=== PATIENT | female | born 1945 | race Caucasian/White ===

== ENCOUNTER → 2019-07-19 | Outpatient (CLI) | payer MEDICARE, BC ==
--- NOTE | 2019-07-19 14:15 | BD ---
EXAMINATION TYPE: Axial Bone Density DATE OF EXAM: 07/19/2019 COMPARISON: NONE CLINICAL HISTORY: M [age] Height: 5 FT 1 IN Weight: 190 FRAX RISK QUESTIONS: Alcohol (3 or more units per day): NO Family History (Parent hip fracture): NO Glucocorticoids (More than 3mos): NO (Ex: prednisone, prednisolone, methylprednisolone, dexamethasone, and hydrocortisone). History of Fracture in Adulthood: NO Secondary Osteoporosis: 1. Type 1 Diabetes: NO 2. Hyperthyroidism: NO 3. Menopause before 45: YES 4. Malnutrition: NO 5. Chronic liver disease: NO Rheumatoid Arthritis: NO Current Tobacco Use: NO RISK FACTORS HISTORY OF: Postmenopausal woman: AGE 38 Lost more than 2 inches in height since high school: YES MEDICATIONS: Additional Medications: METFORMIN, CHOLESTEROL MEDS, BLOOD PRESSURE MEDS, BABY ASPIRIN Additional History: EXAM MEASUREMENTS: Bone mineral densitometry was performed using the [employer] System. Bone mineral density as measured about the Lumbar spine is: ----- L1-L4(G/cm2): 1.362 T Score Values are as follows: ----- L2: 0.8 ----- L3: 2.4 ----- L4: 2.3 ----- L1-L4: 1.5 Bone mineral density has: INCREASED 3.2 % since study of: 2008 Bone mineral density about the R hip (g/cm2): 0.910 Bone mineral density about the L hip (g/cm2): 0.945 T Score values are as follows: -----R Neck: -0.9 -----L Neck: -0.7 -----R Total: -0.1 -----L Total: 0.5 Bone mineral density has: INCREASED 0.2 % since study of: 2008 IMPRESSION: Normal (Values between +1 and -1 indicate normal bone mass). Consider repeating this study in 5 year s or sooner if there is some new clinical indication. NOTE: T-SCORE=SD OF THE YOUNG ADULT MEAN.
--- NOTE | 2019-07-22 13:49 | MM ---
Reason for exam: screening (asymptomatic). Last mammogram was performed 4 years and 7 months ago. History: Patient is postmenopausal. Family history of breast cancer in paternal aunt. Physical Findings: A clinical breast exam by your physician is recommended on an annual basis and results should be correlated with mammographic findings. MG 3D Screening Mammo W/Cad Bilateral CC and MLO view(s) were taken. XCCL view(s) were taken of the right breast. Prior study comparison: December 30, 2014, bilateral MG screening mammo w CAD. March 22, 2012, bilateral digital screening mammo w/CAD. There are scattered fibroglandular densities. New nodule far posterior right breast 14.2cm from nipple. ASSESSMENT: Incomplete: need additional imaging evaluation, BI-RAD 0 RECOMMENDATION: Special view mammogram and ultrasound of the right breast. [facility] will attempt to contact patient to return for supplemental views and ultrasound.
== END | disposition home or self-care (01) ==
LOC: RADMAMWWP 12:50
PROVIDERS: ATTEND Family Medicine
DX: Z12.31 Encounter for screening mammogram for malignant neoplasm of breast (principal); M89.9 Disorder of bone, unspecified
CPT/HCPCS: 77063; 77067; 77080

== ENCOUNTER → 2019-08-01 | Outpatient (CLI) | payer MEDICARE, BC ==
--- NOTE | 2019-08-01 11:53 | MM ---
Reason for exam: additional evaluation requested from abnormal screening. Last mammogram was performed less than 1 month ago. History: Patient is postmenopausal. Family history of breast cancer in paternal aunt. Physical Findings: Nurse did not find any significant physical abnormalities on exam. MG 3D Work Up W/Cad RT Spot compression CC, spot compression MLO, and LM view(s) were taken of the right breast. Prior study comparison: July 19, 2019, bilateral MG 3d screening mammo w/cad. December 30, 2014, bilateral MG screening mammo w CAD. There are scattered fibroglandular densities. There is a 9 x 11mm posterior depth lower outer quadrant mass 13cm from nipple with spiculated boarders. These results were verbally communicated with the patient and result sheet given to the patient on 08/01/19. ASSESSMENT: Incomplete: need additional imaging evaluation, BI-RAD 0 RECOMMENDATION: Ultrasound of the right breast. (lower outer quadrant)
--- NOTE | 2019-08-01 11:55 | USB ---
Reason for exam: additional evaluation requested from abnormal screening. History: Patient is postmenopausal. Family history of breast cancer in paternal aunt. US Breast Workup Limited RT Technologist: Melva Murphy Right limited breast ultrasound including focal area of concern, retroareolar and axilla demonstrates a 1.1 x 0.9 x 0.9cm spiculated, solid, lobular margins, vascular lesion at 8 o'clock. These results were verbally communicated with the patient and result sheet given to the patient on 08/01/19. ASSESSMENT: Highly suggestive of malignancy, BI-RAD 5 RECOMMENDATION: Ultrasound core biopsy of the right breast. Called Dr. Khan's office with mammographic findings and has scheduled an appointment for the patient for 08/21/19 at 3:[address] Vasquez. Biopsy scheduled for 08/12/19 at 2:20. PRELIMINARY REPORT CALLED AND FAXED TO DR. VASQUEZ ON 08/01/19.
== END | disposition home or self-care (01) ==
LOC: RADMAMWWP 08:50
PROVIDERS: ATTEND Family Medicine
DX: R92.8 Other abnormal and inconclusive findings on diagnostic imaging of breast (principal)
CPT/HCPCS: 77065; 76642; G0279; 77061

== ENCOUNTER → 2019-08-12 | Day surgery (SDC) | payer MEDICARE, BC ==
[2019-08-12 13:25] VITALS: RESP 16
[2019-08-12 14:36] VITALS: BP 156/74; PULSE 66; TEMP 97.8
--- NOTE | 2019-08-12 16:09 | USB ---
EXAMINATION TYPE: US biopsy breast VAD RT, MG diagnostic mammo RT wo CAD DATE OF EXAM: 08/12/2019 CLINICAL HISTORY: R92.8 Abnormal Mammogram. TECHNIQUE: Ultrasound guided core biopsy of right breast. COMPARISON: 08/01/2019 FINDINGS: The procedure of ultrasound guided core biopsy was explained to the patient. Benefits, alternatives, and risks were discussed. An informed consent was then obtained. Preprocedural timeout was performed. The patient was placed in supine positioning for imaging and for the procedure. The overlying skin was prepped and draped in usual sterile fashion. 10 cc of 1% lidocaine was used as anesthetic into the skin and subcutaneous tissue up to a 1.1 cm highly suspicious mass at the 8:00 position in the right breast Under ultrasound guidance, a 12-gauge vacuum assisted biopsy gun device was used to obtain 6 core samples. Following this, a ribbon-shaped biopsy marker was left in the mass. Postprocedure mammogram demonstrates appropriate biopsy marker placement. The patient tolerated the procedure well without any immediate complication. The patient was kept in the radiology department for short stay after the procedure and then discharged home in stable condition. IMPRESSION: Successful, uncomplicated ultrasound guided core biopsy of a highly suspicious 1.1 cm right breast mass at the 8:00 position, full pathology results to follow. Pathology Results: Malignant RIGHT BREAST, 8:00, ULTRASOUND GUIDED CORE BIOPSY: Invasive moderately differentiated ductal carcinoma (Grade 2). See Surgical Pathology Cancer Case Summary and Comment. Recommendation Surgical consult of the right breast. VERONICA
== END ==
LOC: RADUSWWP 12:56
PROVIDERS: ATTEND Surgery
DX: C50.511 Malignant neoplasm of lower-outer quadrant of right female breast (principal); Z17.0 Estrogen receptor positive status [ER+]; R92.8 Other abnormal and inconclusive findings on diagnostic imaging of breast
CPT/HCPCS: 19083; 88305; 88342; 88341; 77065; A4648; J2001

== ENCOUNTER 2019-09-05 10:51 | Day surgery (SDC) | payer MEDICARE, BC ==
[2019-09-03 09:56] VITALS: BMI 35.3
[~2019-09-05 10:51] MED LIST: DEXAMETHASONE SOD PHOSPHATE 10 MG/ML 1 ML VIAL IV ONE; HEPARIN SODIUM,PORCINE 5,000 UNIT/ML 1 ML VIAL SQ ONE; LACTATED RINGERS 1,000 ML IV SCH; LIDOCAINE 1% (10MG/ML) FOR IV START INTRADERMA PRN; MORPHINE SULFATE 2 MG/ML SYRINGE IV PRN; ONDANSETRON 4 MG/2 ML VIAL IVP ONE; ONDANSETRON 4 MG/2 ML VIAL IVP PRN; Pre Op ABX Message 1 EACH MISC MISCELLANE ONE
[2019-09-05 11:30] LABS: Glucose,Whole Blood 131 mg/dL (75-99)
[2019-09-05] MEDS ORDERED: LIDOCAINE 1% INJ 10MG/ML (20 ML MDV) SQ ONE (12:08)
--- NOTE | 2019-09-05 12:46 | NM ---
EXAMINATION TYPE: NM sentinel node injection DATE OF EXAM: 09/05/2019 COMPARISON: NONE HISTORY: Right-sided breast cancer. TECHNIQUE AND FINDINGS: The procedure of sentinel lymph node injection was explained to the patient. The benefits, alternatives, and risks were discussed. An informed consent was then obtained. Overlying skin is cleaned with sterile alcohol. Following this, 526 uCi Tc99m Tilmanocept was inject ed in the upper outer aspect of the right nipple intradermally. The patient tolerated the procedure well without any immediate complication. The patient was kept in the radiology department for short stay after the procedure and then taken to surgery for surgical p rocedure what is presumed intraoperative gamma probe will be used for sentinel lymph node detection. IMPRESSION: Right breast radiotracer injection for sentinel node localization as above.
[2019-09-05] MEDS ORDERED: LIDOCAINE 1% INJ 10MG/ML (20 ML MDV) ONE (13:15)
[2019-09-05] MEDS ORDERED: HYDROmorphone (PF) 1 MG/ML ONE (13:15)
[2019-09-05] MEDS ORDERED: ETOMIDATE 2 MG/ML 10 ML VIAL ONE (13:15)
[2019-09-05] MEDS ORDERED: fentaNYL (PF) 50 MCG/ML 2 ML AMP ONE (13:15)
[2019-09-05] MEDS ORDERED: ePHEDrine SULFATE/0.9% NACL/PF 50 MG/5 ML SYRINGE IV ONE (13:15)
[2019-09-05] MEDS ORDERED: MIDAZOLAM 2 MG/2 ML VIAL ONE (13:15)
[2019-09-05] MEDS ORDERED: SUCCINYLCHOLINE CHLORIDE 100 MG/5 ML SYR IV ONE (13:15)
[2019-09-05] MEDS ORDERED: PROPOFOL 10 MG/ML 20 ML VIAL IV ONE (13:15)
[2019-09-05] MEDS ORDERED: SODIUM CHLORIDE 0.9% 100 ML with ceFAZolin 2,000 MG IV ONE ×2 (13:26)
[2019-09-05] MEDS ORDERED: METHYLENE BLUE 50 MG/10 ML AMPUL INJ ONE (13:55)
[2019-09-05] MEDS ORDERED: BUPIVACAIN-EPI 0.25%-1:200,000 30 ML VIAL SQ ONE ×2 (13:55→14:49)
[2019-09-05] MEDS ORDERED: LACTATED RINGERS 1,000 ML IV ONE (14:43)
[2019-09-05] MEDS ORDERED: HYDROcodone/APAP 5-325MG 1 EACH TAB PO PRN (15:20)
[2019-09-05] MEDS ORDERED: NALOXONE 0.4 MG/ML 1 ML VIAL IV PRN (15:20)
--- NOTE | 2019-09-05 15:25 | P.OP ---
Date of Procedure: 09/05/19 Procedure(s) Performed: REOPERATIVE DIAGNOSIS: Right breast cancer POSTOPERATIVE DIAGNOSIS: Same PROCEDURE: Right Breast wire localization lumpectomy with sentinel lymph node biopsy SURGEON: Darin EBL: Minimal ANESTHESIA: General COMPLICATIONS: None OPERATIVE PROCEDURE: Patient was placed on the operating room table in the supine position. 2 mL of methylene blue was injected into the subareolar space. The breast was then massaged for 5 minutes. The breast was prepped and draped in usual sterile fashion. The right axilla was addressed at that time. The hot spot in the right axilla was identified. A small curvilinear incision was made using the scalpel. Dissection down through the subcutaneous tissues took place using electrocautery. Using the neoprobe I identified a total of 2 sentinel lymph nodes. Neither of these were blue in color. No residual radioactivity was identified in the axilla following removal of those 2 nodes. These both appeared clinically benign and were sent to pathology in formalin. No bleeding was seen. The subcutaneous tissues were closed using 3-0 Vicryl sutures. The skin was closed using 4-0 Monocryl sutures. The wire entrance site was then addressed. This was present at the 7:00 location. A curvilinear incision was made adjacent to the wire entrance site. I followed the wire down into the breast tissue. An adequate lumpectomy specimen then took place around the wire. Margins of 1.5-2 cm worth attempted to be achieved. Palpation of the specimen suggested that the anterior and inferior margins were somewhat close. I took an additional margin anteriorly and inferiorly and these margins were painted the appropriate color on the new margin side. The initial specimen was also painted the appropriate 6 colors. Clips were used to identify the lumpectomy cavity. The clip was confirmed to be within the lumpectomy specimen by radiology. The subcutaneous tissues were closed using 3-0 Vicryl sutures. The skin was closed using a running 4-0 Monocryl stitch. Skin glue and sterile dressings were then applied. DISPOSITION: Stable to recovery room
[2019-09-05 15:42] VITALS: TEMP 97.3
[2019-09-05 16:33] LABS: Glucose,Whole Blood 170 mg/dL (75-99)
[2019-09-05 17:03] VITALS: BP 134/62; PULSE 67; RESP 20
--- NOTE | 2019-09-05 17:24 | USB ---
EXAM: Needle localization with wire placement. CLINICAL HISTORY: Biopsy-proven cancer in right breast TECHNIQUE: Needle localization with wire placement and surgical excision of area of concern in the right breast. Specimen mammogram. COMPARISON: Ultrasound and mammogram August 12, 2019. FINDINGS: The procedure of needle localization with wire placement and than surgical excision was explained to the patient. Benefits, alternatives, and risks were discussed. An informed consent was then obtained. Ultrasound guidance was chosen for localization as was performed during time of biopsy. Patient placed supine. Redemonstration of a heterogeneous lobulated hypoechoic lesion 8:00 position right breast was redemonstrated. Overlying skin cleansed with ChloraPrep. Lidocaine used as anesthetic into the skin and deeper tissue. Under ultrasound guidance a 5 cm needle was placed through the lesion. Needle is withdrawn and wires left. The patient tolerated the procedure well without any immediate complication. The patient was kept in the radiology department for short stay after the procedure and then taken to surgery for surgical excision. Targeted mass and wire are identified in specimen mammogram. The patient was kept in hospital for short stay after the procedure and then discharged home in stable condition. IMPRESSION: Successful, uncomplicated needle localization with wire placement and surgical excision of targeted mass or neoplasm in the right breast, full pathology results to follow. Pathology Results: Malignant A. RIGHT BREAST, LUMPECTOMY: 15 x 10 x 8 mm infiltrating well differentiated (Grade 1) not contacting margins of excision. See note. B. SENTINEL LYMPH NODES, BIOPSIES: Two lymph nodes negative for metastatic adenocarcinoma as documented by H+E as well as appropriately controlled immunohistochemical stains for cytokeratin 7 and VIC. C. EXTENDED/NEW ANTERIOR INFERIOR MARGIN, EXCISION: Adipose tissue negative for adenocarcinoma. Recommendation Appropriate oncologic management. MTDD
[2019-09-05] MEDS ORDERED: ONDANSETRON ODT 4 MG TAB PO ONE (17:45)
--- NOTE | 2019-09-16 15:09 | CDI ---
Outpatient Documentation Clarification Form Date: 09/16/19 CDS/Ward Attendant Name: Dee Duval Phone: If any questions, call Heidy Ramesh Chipping Machine Operator at [phone] Patient Name: Luciana Pang Admit Date: 09/05/19 Discharge Date: 09/05/19 ATTENTION: The [facility] Coding Staff appreciate your assistance in clarifying documentation. Please respond to the clarification below the line at the bottom and electronically sign. The [facility] Coding staff will review the response and follow-up if needed. Please note: Queries are made part of the Legal Health Record. If you have any questions, please contact the Chipping Machine Operator. Dear Dr. Webster, Please provide clarification as to the depth of the axillary lymph nodes biopsied. To assist in ascertaining which lymph node excision code to report, the axillary lymph nodes are divided into Levels I through III. Levels II and III would always be deep (code 14867). Level I may be deep (code 12655) or superficial (code 52456), depending on the patient's body habitus. Superficial nodes at most sites would be easily palpable. Since Level I axillary lymph nodes may be deep or superficial, it is important that the depth (ie, deep or superficial) be documented in the medical record to ensure correct coding Thank you for your kind consideration. Deep MTDD
== END 2019-09-05 17:53 | disposition home or self-care (01) ==
LOC: OR 10:51
PROVIDERS: ATTEND Surgery
DX: C50.911 Malignant neoplasm of unspecified site of right female breast (principal); E11.9 Type 2 diabetes mellitus without complications; K21.9 Gastro-esophageal reflux disease without esophagitis; M19.90 Unspecified osteoarthritis, unspecified site; Z79.84 Long term (current) use of oral hypoglycemic drugs; Z79.82 Long term (current) use of aspirin; Z79.899 Other long term (current) drug therapy; Z88.8 Allergy status to other drugs, medicaments and biological substances; Z88.0 Allergy status to penicillin; Z91.048 Other nonmedicinal substance allergy status
CPT/HCPCS: 19301; 38525; 88342; 88307; 88341; 76098; 38792; A9520; J2250; J1644; J1100; J2405; J0690; J2001; J3010; J1170; J0330; J2704; Q9968

== ENCOUNTER → 2021-01-28 | Outpatient (CLI) | payer MEDICARE, BC ==
--- NOTE | 2021-02-16 09:16 | MM ---
Reason for exam: additional evaluation requested from prior study. Last mammogram was performed 1 year and 6 months ago. History: Patient is postmenopausal and has history of breast cancer at age 73. Family history of breast cancer in paternal aunt. Malignant US breast localization RT of the right breast, September 05, 2019. Lumpectomy of the right breast, September 05, 2019. Malignant US biopsy breast VAD RT of the right breast, August 12, 2019. Physical Findings: Nurse did not find any significant physical abnormalities on exam. MG 3D Diag Mammo W/Cad VIRAJ Bilateral CC and MLO view(s) were taken. Prior study comparison: August 12, 2019, right breast MG diagnostic mammo RT wo CAD. August 01, 2019, right breast MG 3d work up w/cad RT. There are scattered fibroglandular densities. Post surgical change posterior right breast. Short interval follow up to assess for any evolving post therapy changes. Otherwise, no significant change. These results were verbally communicated with the patient and result sheet given to the patient on 01/28/21. ASSESSMENT: Probably benign, BI-RAD 3 RECOMMENDATION: Follow-up diagnostic mammogram of the right breast in 6 months.
== END | disposition home or self-care (01) ==
LOC: RADMAMWWP 14:09
PROVIDERS: ATTEND Internal Medicine Hematology & Oncology
DX: R92.8 Other abnormal and inconclusive findings on diagnostic imaging of breast (principal); Z85.3 Personal history of malignant neoplasm of breast
CPT/HCPCS: 77066; G0279; 77062

== ENCOUNTER → 2021-08-31 | Outpatient (CLI) | payer MEDICARE, BC ==
--- NOTE | 2021-08-31 14:34 | MM ---
Reason for exam: follow-up at short interval from prior study. Last mammogram was performed 7 months ago. History: Patient is postmenopausal and has history of breast cancer at age 73. Family history of breast cancer in paternal aunt. Malignant US breast localization RT of the right breast, September 05, 2019. Lumpectomy of the right breast, September 05, 2019. Malignant US biopsy breast VAD RT of the right breast, August 12, 2019. Physical Findings: A clinical breast exam by your physician is recommended on an annual basis and results should be correlated with mammographic findings. MG 3D Diag Mammo W/Cad RT CC and MLO view(s) were taken of the right breast. Prior study comparison: January 28, 2021, bilateral MG 3d diag mammo w/cad VIRAJ. August 12, 2019, right breast MG diagnostic mammo RT wo CAD. There are scattered fibroglandular densities. Post surgical and post therapy changes right breast. Ongoing short interval follow up to assess any evolving post therapy changes. No significant new findings when compared with previous films. These results were verbally communicated with the patient and result sheet given to the patient on 08/31/21. ASSESSMENT: Probably benign, BI-RAD 3 RECOMMENDATION: Follow-up diagnostic mammogram of both breasts in 5 months. Back on schedule.
--- NOTE | 2021-08-31 19:42 | BD ---
EXAMINATION TYPE: Axial Bone Density DATE OF EXAM: 08/31/2021 COMPARISON: NONE CLINICAL HISTORY: 75 years year old Female. ICD-10 CODE: [id number], [id number] Height: 5 FT 1 1/4 IN Weight: 167 FRAX RISK QUESTIONS: Alcohol (3 or more units per day): NO Family History (Parent hip fracture): NO Glucocorticoids (More than 3mos): NO (Ex: prednisone, prednisolone, methylprednisolone, dexamethasone, and hydrocortisone). History of Fracture in Adulthood: NO Secondary Osteoporosis: 1. Type 1 Diabetes: TYPE 2 2. Hyperthyroidism: NO 3. Menopause before 45: YES 4. Malnutrition: NO 5. Chronic liver disease: NO Rheumatoid Arthritis: NO Current Tobacco Use: NO RISK FACTORS HISTORY OF: Surgery to Spine/Hip(right/left)/Wrist (right/left): NO Family History of Osteoporosis: NO Active: YES Diet low in dairy products/other sources of calcium: NO Postmenopausal woman: YES Take estrogen and/or progesterone medications: NO Lost more than 2 inches in height since high school: YES Frequent falls: NO Poor Health: GOOD Hyperparathyroidism: NO Adrenal Insufficiency: NO MEDICATIONS: Additional Medications: ANASTROZOLE, METFORMIN, ATORVASTATIN, ATENOLOL, ASPIRIN, CALCIUM Additional History: BREAST CANCER 2019 EXAM MEASUREMENTS: Bone mineral densitometry was performed using the [employer]. Bone mineral density as measured about the Lumbar spine is: ----- L1-L4(G/cm2): 1.367 T Score Values are as follows: ----- L2: 1.2 ----- L3: 2.4 ----- L4: 1.9 ----- L1-L4: 1.6 Bone mineral density has: DECREASED -0.4 % since of: 2019 Bone mineral density about the R hip (g/cm2): 0.916 Bone mineral density about the L hip (g/cm2): 0.968 T Score values are as follows: -----R Neck: -0.9 -----L Neck: -0.5 -----R Total: -0.3 -----L Total: 0.0 Bone mineral density has: DECREASED -3.9 % since of: 2019 IMPRESSION: Normal (Values between +1 and -1 indicate normal bone mass). However, note that measurements border o n osteopenia at the right hip. Consider repeating this study in 5 years or sooner if there is some new clinical indication. NOTE: T-SCORE=SD OF THE YOUNG ADULT MEAN.
== END | disposition home or self-care (01) ==
LOC: RADMAMWWP 13:58
PROVIDERS: ATTEND Internal Medicine Hematology & Oncology
DX: Z03.89 Encounter for observation for other suspected diseases and conditions ruled out (principal); C50.511 Malignant neoplasm of lower-outer quadrant of right female breast; N95.1 Menopausal and female climacteric states; Z17.0 Estrogen receptor positive status [ER+]; Z79.890 Hormone replacement therapy; Z85.3 Personal history of malignant neoplasm of breast
CPT/HCPCS: 77080; 77065; G0279; 77061

== ENCOUNTER → 2022-03-07 | Outpatient (CLI) | payer MEDICARE, BC ==
--- NOTE | 2022-03-07 13:54 | MM ---
Reason for Exam: Follow-up at short interval from prior study. Last mammogram was performed 1 year(s) and 1 month(s) ago. Patient History: Menarche at age 10. First Full-Term at age 21. Postmenopausal. Breast cancer, right, age 73. 09/05/2019, Lumpectomy on the Right side. 09/05/2019, Malignant Core Biopsy on the right side. 08/12/2019, Malignant Core Biopsy on the right side. Paternal aunt had breast cancer. Tissue Density: There are scattered fibroglandular densities. Findings: Analyzed By CAD. Postsurgical and posttreatment change right breast. Asymmetric density anterior medial right cc view remains unchanged. Scattered benign os calcis calcifications on the left. No significant change from prior exams. Overall Assessment: Probably benign, BI-RAD 3 Management: Diagnostic Mammogram of the right breast in 6 months. Continued short interval follow-up after recent treatment to assess for any evolving posttreatment changes. Patient should continue monthly self breast exams. Electronically signed and approved by: Reno Cruz M.D. Radiologist
== END | disposition home or self-care (01) ==
LOC: RADMAMWWP 12:39
PROVIDERS: ATTEND Internal Medicine Hematology & Oncology
DX: Z85.3 Personal history of malignant neoplasm of breast (principal)
CPT/HCPCS: 77066; G0279; 77062

== ENCOUNTER → 2023-03-28 | Outpatient (CLI) | payer MEDICARE, BC ==
--- NOTE | 2023-03-28 11:06 | MM ---
Reason for Exam: Follow-up at short interval from prior study. Last mammogram was performed 1 year(s) and 1 month(s) ago. Patient History: Menarche at age 10. First Full-Term at age 21. Postmenopausal. Breast cancer, right, age 73. 09/05/2019, Lumpectomy on the Right side. 09/05/2019, Malignant Core Biopsy on the right side. 08/12/2019, Malignant Core Biopsy on the right side. Paternal aunt had breast cancer. Prior Study Comparison: 06/24/2002 Screening Mammogram, [facility]. 07/09/2003 Screening Mammogram, [facility]. 03/24/2008 Bilateral Screening Mammogram, [facility]. 03/22/2012 Bilateral Screening Mammogram, [facility]. 12/30/2014 Bilateral Screening Mammogram, [facility]. 07/19/2019 Bilateral Screening Mammogram, [facility]. 08/01/2019 Right Diagnostic Mammogram, [facility]. 08/01/2019 Right Diagnostic Ultrasound, [facility]. 08/12/2019 Right Diagnostic Mammogram, [facility]. 01/28/2021 Bilateral Diagnostic Mammogram, [facility]. 08/31/2021 Right Diagnostic Mammogram, [facility]. 03/07/2022 Bilateral MG 3D diag mammo w/cad VIRAJ, [facility]. Tissue Density: There are scattered fibroglandular densities. Findings: Analyzed By CAD. Surgical and post treatment changes to the right breast. Asymmetric density in the anteromedial right breast cc view remains unchanged. Scattered benign calcifications in the left breast. No new suspicious masses or group of calcifications within either breast. Overall Assessment: Benign, BI-RAD 2 Management: Diagnostic Mammogram of both breasts in 1 year. A clinical breast exam by your physician is recommended on an annual basis and results should be correlated with mammographic findings. This exam should not preclude additional follow-up of suspicious palpable abnormalities. Results were given to the patient verbally at the time of exam. Electronically signed and approved by: Jean Pierre Reed D.O.
== END | disposition home or self-care (01) ==
LOC: RADMAMWWP 10:43
PROVIDERS: ATTEND Internal Medicine Hematology & Oncology
DX: R92.1 Mammographic calcification found on diagnostic imaging of breast (principal); Z85.3 Personal history of malignant neoplasm of breast; Z78.0 Asymptomatic menopausal state; Z80.3 Family history of malignant neoplasm of breast
CPT/HCPCS: 77066; G0279; 77062